=== PATIENT | male | born 1955 | race Caucasian/White ===

== ENCOUNTER 2020-11-25 09:58 | Emergency (ER) | payer OTHER | END 2020-11-25 11:50 | disposition home or self-care (01) | LOC: EDH 09:58 | DX: S93.402A Sprain of unspecified ligament of left ankle, initial encounter (principal); W01.0XXA Fall on same level from slipping, tripping and stumbling without subsequent striking against object, initial encounter; Y93.89 Activity, other specified; Y92.89 Other specified places as the place of occurrence of the external cause; Y99.8 Other external cause status | CPT/HCPCS: 73610 ==

== ENCOUNTER 2023-06-13 06:08 | Day surgery (SDC) | payer OTHER ==
[2023-06-11 11:08] LABS: BASOPHILS % (AUTO) 0.9 % (0.0-5.0); EOSINOPHILS # (AUTO) 0.31 K/uL (0.00-0.70); EOSINOPHILS % (AUTO) 2.7 % (0.0-8.0); HEMATOCRIT 45.3 % (42-54); IMMATURE GRANULOCYTE ABSOLUTE 0.27 K/uL (0-1); LYMPHOCYTES # (AUTO) 2.2 K/uL (1.0-4.8); LYMPHOCYTES % (AUTO) 18.8 % (21.0-51.0); MEAN CORPUSCULAR HEMOGLOBIN 33.6 pg (27.0-33.0); MEAN CORPUSCULAR HGB CONC 33.8 g/dL (32.0-36.0); MEAN CORPUSCULAR VOLUME 99.6 fL (79-99); MONOCYTES # (AUTO) 0.9 K/uL (0.1-1.0); MONOCYTES % (AUTO) 7.7 % (3.0-13.0); NEUTROPHILS # (AUTO) 7.8 K/uL (1.8-7.7); NEUTROPHILS % (AUTO) 67.6 % (40.0-77.0); PLATELET COUNT (AUTO) 318 K/uL (130-400); RED BLOOD CELL COUNT(AUTO) 4.55 MIL/uL (4.50-6.20); RED CELL DISTRIBUTION WIDTH 13.5 % (11.0-15.5); WHITE BLOOD COUNT (AUTO) 11.5 K/uL (4.8-10.8)
[2023-06-11 11:10] VITALS: BP 155/83; PULSE 83; RESP 18
[2023-06-11 11:22] LABS: POTASSIUM 4.8 mmol/L (3.5-5.1)
[~2023-06-13] VITALS: Ht 170.2 cm; Wt 96.7 kg
[2023-06-13 06:13] VITALS: BP 154/84; PULSE 100; RESP 15
[2023-06-13] MEDS ORDERED: 0.9%NACL 1000ML 1,000 ML IV ONE (06:16)
[2023-06-13 07:53] VITALS: BP 154/84; PULSE 100; RESP 16
[2023-06-13] MEDS ORDERED: HYDR-4064 PO (07:53)
[2023-06-13] MEDS ORDERED: ROSU20TA73 PO (07:53)
[2023-06-13] MEDS ORDERED: TRAZ150T79 PO (07:53)
[2023-06-13] MEDS ORDERED: LIDOCAINE HCL 400MG/20ML VIAL ONE (08:36)
[2023-06-13] MEDS ORDERED: MEPERIDINE-PF 25 MG/ML SYG ONE ×3 (09:15→09:29)
[2023-06-13] MEDS ORDERED: MIDAZOLAM HCL 1 MG/ML 2ML VIAL ONE ×3 (09:15→09:30)
[2023-06-13 10:00] VITALS: BP 107/67; PULSE 89; RESP 16
[2023-06-13] MEDS ORDERED: ACETAMINOPHEN WITH CODEINE 1 TAB TAB PO PRN (10:00)
[2023-06-13] MEDS ORDERED: ACETAMINOPHEN 500 MG TABLET PO PRN (10:00)
[2023-06-13 10:30] VITALS: BP 128/82; PULSE 90
== END 2023-06-13 10:30 | disposition home or self-care (01) ==
LOC: DAH 06:08
PROVIDERS: ATTEND Internal Medicine Cardiovascular Disease
DX: Z45.09 Encounter for adjustment and management of other cardiac device (principal); I47.19 Other supraventricular tachycardia; F17.210 Nicotine dependence, cigarettes, uncomplicated; G47.33 Obstructive sleep apnea (adult) (pediatric); G47.00 Insomnia, unspecified; J44.9 Chronic obstructive pulmonary disease, unspecified; M19.90 Unspecified osteoarthritis, unspecified site; Z90.49 Acquired absence of other specified parts of digestive tract; Z88.0 Allergy status to penicillin; Z79.899 Other long term (current) drug therapy; Z79.01 Long term (current) use of anticoagulants
CPT/HCPCS: 80048; 85025; 36415; 93005; 33286; A4649; J3490; J7030; J2250 ×3; J2175 ×3; A4215; A4222; A4221; A4663; A4216; A4606; A4223 ×3; 99156; 99157

== ENCOUNTER → 2024-01-17 | Outpatient (CLI) | payer OTHER ==
[~2024-01-17] MED LIST: HYDR-4064 PO; ROSU20TA73 PO; TRAZ150T79 PO
== END ==
LOC: SHCH 09:26
PROVIDERS: ATTEND Internal Medicine Cardiovascular Disease
DX: R55 Syncope and collapse (principal); I47.10 Supraventricular tachycardia, unspecified
CPT/HCPCS: 93306